=== PATIENT | female | born 1990 | race African-American/Black ===

== ENCOUNTER 2018-04-22 17:59 | Emergency (ER) | payer OTHER ==
[~2018-04-22] VITALS: Ht 165.1 cm; Wt 124.7 kg
[~2018-04-22 17:59] MED LIST: ADVAIR 250-501 EACH INH; ADVAIR HFA115 MCG/21 INH; APAP500; CETIRIZINE HCL10 MG PO; CIPROFLOXACIN500 M1 PO; CIPROFLOXIN HC2.5 M1 OPHTHALMIC; CIPROFLOXIN HC2.5 ML OPHTHALMIC; COLACE 100 MG100 MG; ERYTHROMYCIN E3.5 G1 OPHTHALMIC; HYDROCODON-ACE1 EAC5; HYDROCODONE-AP1 EAC6 PO; IBUPROFEN 600600 M1 PO; IBUPROFEN 800800 M1; IRON325; IRON325 M1 PO; MACROBID 100 M100 M1 PO; PREDNISONE 20 M20 MG PO; PRENATAL; PROAIR HFA8.5 GM INH; TRINESSA1 EACH PO; VENTOLIN HFA 1818 GM INH; ZOFRAN 4 MG ORAL4 M1 DIS; ZOFRAN ODT4 MG PO
[2018-04-22 18:01] VITALS: BP 141/82
[2018-04-22] MEDS ORDERED: TRIAMCINOLONE A80 G2 TOP (18:09)
[2018-04-22] MEDS ORDERED: KEFLEX500 M1 PO (18:25)
[2018-04-22] MEDS ORDERED: PREDNISONE 20 M20 MG PO (18:25)
== END 2018-04-22 18:48 | disposition home or self-care (01) ==
LOC: ER 17:59
DX: R21 Rash and other nonspecific skin eruption (principal); L29.9 Pruritus, unspecified; Z87.891 Personal history of nicotine dependence; Z91.010 Allergy to peanuts

== ENCOUNTER 2020-08-15 04:35 | Emergency (ER) | payer BC, OTHER ==
[~2020-08-15] VITALS: Ht 165.1 cm; Wt 129.7 kg
[~2020-08-15 04:35] MED LIST changes: +KEFLEX500 M1 PO; +TRIAMCINOLONE A80 G2 TOP
[2020-08-15] MEDS ORDERED: [UNRECOGNIZED DRUG - OTHER] PO (04:42)
[2020-08-15] MEDS ORDERED: BIRTH CONTROL PO (04:43)
[2020-08-15 05:32] VITALS: BP 132/79
[2020-08-15] MEDS ORDERED: NORCO 5-325 TA1 EAC2 PO (05:40)
[2020-08-15] MEDS ORDERED: CYCLOBENZAPRINE5 MG PO (05:40)
[2020-08-15] MEDS ORDERED: MOBIC15 MG PO (05:40)
== END 2020-08-15 06:05 | disposition home or self-care (01) ==
LOC: ER 04:35
DX: M46.1 Sacroiliitis, not elsewhere classified (principal); Z79.899 Other long term (current) drug therapy; Z91.010 Allergy to peanuts; Z87.891 Personal history of nicotine dependence